=== PATIENT | male | born 1970 | race African-American/Black ===

== ENCOUNTER 2016-11-22 20:56 | Emergency (ER) ==
[2016-11-22 21:05] VITALS: BP 112/81
--- NOTE | 2016-11-22 22:59 | PROVIDER DOCUMENTATION ---
HPI-Musculoskeletal Pain/Inj - GENERAL Source: patient - HX OF PRESENT ILLNESS-MUSKULOSKELTAL Quality of Pain: reports: aching Severity in ED: moderate Onset/Duration: 2 days ago Timing: still present Modifying Factors: improves with: nothing Any recent injury?: No Locality of Occurance: Work Similar Symptoms Previously?: Yes Recently seen or treated by another doctor?: No <Mauricio Nowak - Last Filed: 11/22/16 23:59> <Yuval Deleon - Last Filed: 11/23/16 00:58> - GENERAL Chief Complaint: Return/Recheck Stated Complaint: WORKERS COMP Time Seen by Provider: 11/22/16 21:03 - HX OF PRESENT ILLNESS-MUSKULOSKELTAL Nature of Presenting Problem: 46 y/o AAM shoveling at work and felt a pain in his left lower back going around to his suprapubic region. Pt states he has hurt his back in the past. This time he went to the employee health and they said alternate ice and heat and take advil for pain. Today the pain has not improved. (Mauricio Nowak) Review of Systems - Adult - REVIEW OF SYSTEMS - ADULT Constitutional: denies: chills, fever Eyes: reports: no symptoms reported Ears, Nose, Mouth & Throat: reports: no symptoms reported Cardiovascular: reports: no symptoms reported Respiratory: reports: no symptoms reported Gastrointestinal: reports: no symptoms reported Genitourinary: denies: discharge, hematuria, incontinence, urinary retention Musculoskeletal: reports: back pain. denies: joint pain, neck pain Integumentary: reports: no symptoms reported Neurological: reports: no symptoms reported Psychiatric: reports: no symptoms reported Endocrine: reports: no symptoms reported Hematologic/Lymphatic: reports: no symptoms reported Allergic/Immunologic: reports: no symptoms reported All Other Systems: Reviewed and Negative <Mauricio Nowak - Last Filed: 11/22/16 23:59> Past History - Adult - PAST MEDICAL HISTORY-ADULT Review of Records: reports: Old Records Reviewed, Nursing Assessment Review, Medications Reviewed - PRIOR SURGERIES/PROCEDURES Surgical/Procedure History: reports: tonsillectomy - IMMUNIZATION STATUS Childhood Immunizations: See Nurse Assessment Flu Vaccine: See Nurse Assessment - FAMILY HISTORY Family History: reviewed, not pertinent - SOCIAL HISTORY Smoking: non-smoker Living Situation: family <Mauricio Nowak - Last Filed: 11/22/16 23:59> Physical Exam-Injury Related - Physical Exam-Injury Related Initial Vital Signs Reviewed: Yes General Appearance: appears well, alert, no apparent distress Eyes: PERRL/EOMI, pink conjunctivae Head, Ears, Nose, Mouth & Throat: moist mucous membranes, normal ENT inspection , TMs normal, pharynx normal Neck: non-tender, full range of motion, supple, normal inspection Respiratory: lungs clear, normal breath sounds, no pleuratic chest pain, no respiratory distress, no accessory muscle use Cardiovascular: normal peripheral pulses, regular rate, rhythm Abdominal Exam: normal bowel sounds, non tender, soft Back Exam: no CVA tenderness, no vertebral tenderness, other (left low back tenderness with palpation) Extremity: normal range of motion, non-tender, normal gait, normal inspection Integumentary: normal color, warm/dry Neurologic: grossly normal, no motor/sensory deficits Psych/Mental Status: normal mood/affect, normal thought content, normal thought process, oriented x 3 <Mauricio Nowak - Last Filed: 11/22/16 23:59> Progress - CT/MRI 1 CT Study: Renal Stone Impression: Normal (no renal stones, no hydronephrosis, no bowel obstruction, normal appendix, no abscess, Negative per Radiologist Dr Pereira) <Mauricio Nowak - Last Filed: 11/22/16 23:59> <Yuval Deleon - Last Filed: 11/23/16 00:58> - PLAN OF CARE/RESULTS Progress/Plan/Lab Results: Orders Category Date Time Status RENAL STONE SEARCH [CT] Stat Exams 11/22/16 23:[address] W/POSS RFLX CULT [URINALYSIS] Stat Lab 11/22/16 23:03 Uncollected Hydrocodone/APAP 10 mg/325 mg [[place]-10] Med 11/22/16 23:04 Discontinued 1 each PO NOW ONE Ketorolac [Toradol] Med 11/22/16 23:04 Discontinued 60 mg IM NOW ONE Orphenadrine [Norflex] Med 11/22/16 23:04 Discontinued 60 mg IM NOW ONE Vital Signs - 24 hr 11/22/16 21:01 Temperature 98 F Pulse Rate 65 Respiratory 18 Rate Blood Pressure 112/81 O2 Sat by Pulse 98 Oximetry (Yuval Deleon) Departure <Mauricio Nowak - Last Filed: 11/22/16 23:59> - Departure Time of Disposition Order: 23:34 Certified Medical Emergency: Emergent <Yuval Deleon - Last Filed: 11/23/16 00:58> - Departure DIAGNOSIS: Flank pain, Muscle spasm UTI (urinary tract infection) Qualifiers: Urinary tract infection type: site unspecified Hematuria presence: without hematuria Qualified Code(s): N39.0 - Urinary tract infection, site not specified Disposition: HOME 01 Condition: Stable Additional Instructions: ED Follow Up Instructions: You have been treated by a care provider in the Emergency Department. These instructions are being provided to you so you can have an understanding of how to care for yourself upon discharge. Upon discharge from the Emergency Department, you are responsible for making arrangements for follow-up care by a physician of your choice. Take all prescribed medications as directed. Return to the Emergency Department immediately for any new or worsening symptoms. You may call the Physician Referral phone number at [phone] to obtain a list of Physicians who are taking new patients. Prescriptions: Cyclobenzaprine [Flexeril] 10 mg PO TID #20 tablet Cephalexin [Keflex] 500 mg PO BID #14 capsule Ibuprofen [Motrin] 800 mg PO Q8H PRN PRN #20 tablet PRN Reason: inflammation Omeprazole [Prilosec] 20 mg PO DAILY@0700 #20 capsule Referrals: Checo Lujan MD [STAFF PHYSICIAN] - Attestation - Scribe Verification/Attestation Scribe:: Mauricio Nowak Acting as Scribe for:: Yuval Deleon Scribe documention review:: This chart was documented by a scribe and accurately reflects the service the provider performed and the decisions made by the provider. <Mauricio Nowak - Last Filed: 11/22/16 23:59> - Physician/ CLAUDE Attestation Patient care was provided by Advanced Practice Provider:: Yes Advanced Practice Provider:: Yuval Deleon Advanced Practice Provider documentation review:: The Mid-level provider documentation, treatment plan and medical decision making was reviewed by the physician who agrees with all treatment and medical decision making by the [facility]. <Yuval Deleon - Last Filed: 11/23/16 00:58> Physician Attestation - Physician Attestation I, the provider, attest to the following statement:: Yuval Deleon Physician documentation Attestation:: This documentation recorded by the scribe accurately reflects the service I personally performed and the decisions made by me. <Yuval Deleon - Last Filed: 11/23/16 00:58>
[2016-11-22] MEDS ORDERED: TORADOL IM ONE (23:04)
[2016-11-22] MEDS ORDERED: NORCO-10 PO ONE (23:04)
[2016-11-22] MEDS ORDERED: NORFLEX IM ONE (23:04)
[2016-11-23 00:23] LABS: URINE SOURCE VOIDED
[2016-11-23 00:28] LABS: BILIRUBIN URINE NEGATIVE (NEGATIVE); BLOOD URINE NEGATIVE (NEGATIVE); CLARITY HAZY (CLEAR); COLOR YELLOW; GLUCOSE URINE NEGATIVE (NEGATIVE); LEUKOCYTES URINE 1+ (NEGATIVE); NITRITE URINE NEGATIVE (NEGATIVE); PROTEIN URINE NEGATIVE (NEGATIVE); UROBILINOGEN URINE 1+(1 mg/dL)
[2016-11-23 00:50] LABS: URINE EPITHELIAL CELLS <10 /HPF (<10); URINE RBC <10 /HPF (<10); URINE WBC TNTC /HPF (<10)
[2016-11-23 00:51] LABS: URINE CULTURE PL NEEDED? YES; URINE SMALL ROUND CELLS TRANSITIONAL PRESENT
[2016-11-23] MEDS ORDERED: ROCEPHIN IM ONE (00:55)
[2016-11-23] MEDS ORDERED: XYLOCAINE-MPF 1% INJ ONE (00:55)
--- NOTE | 2016-11-23 08:26 | Diag Imaging Result Document ---
PROCEDURE NAME: RENAL STONE SEARCH - 11/22/2016 CT ABDOMEN AND PELVIS WITHOUT ORAL OR INTRAVENOUS CONTRAST. DOSE REDUCTION PROTOCOL: FINDINGS: The lower lungs are clear. Normal spleen and adrenal glands. No inflammation about the pancreas or gallbladder. No focal hepatic abnormality identified on this noncontrasted exam. A calcified granuloma is noted in the right lower lobe. No perinephric inflammation. No renal stones. No hydronephrosis. Normal aorta. No bowel obstruction. Normal appendix. No abscess. The urinary bladder is distended and appears normal. Prostate is not enlarged. Minimal curvature to the spine. No compressed vertebra. IMPRESSION: 1. No renal stones or hydronephrosis. 2. No bowel obstruction. Normal appendix. No abscess. A preliminary report was given at 11:30 p.m.
== END 2016-11-23 01:33 | disposition home or self-care (01) ==
LOC: P.ED 20:56
DX: N39.0 Urinary tract infection, site not specified (principal); R10.9 Unspecified abdominal pain; M62.838 Other muscle spasm
CPT/HCPCS: 74176; 81001; 87088; 87491; 87591; 96372; J0696; J1885; J2360

== ENCOUNTER 2016-11-24 09:39 | Emergency (ER) ==
[2016-11-24 09:50] VITALS: BP 116/86
--- NOTE | 2016-11-24 10:11 | PROVIDER DOCUMENTATION ---
HPI-General Adult - General Chief Complaint: Return W/Comp Stated Complaint: LOWER BACK PAIN Time Seen by Provider: 11/24/16 09:54 Source: patient Allergies/Adverse Reactions: Patient Allergies Allergy/AdvReac Type Severity Reaction Status Date / Time No Known Allergies Allergy Verified 05/28/16 14:01 Home Medications: Home Medication List Medication Instructions Recorded Confirmed Last Taken Type Cephalexin [Keflex] 500 mg PO BID #14 capsule 11/23/16 Unknown Rx Cyclobenzaprine [Flexeril] 10 mg PO TID #20 tablet 11/23/16 Unknown Rx Ibuprofen [Motrin] 800 mg PO Q8H PRN PRN #20 tablet 11/23/16 Unknown Rx Omeprazole [Prilosec] 20 mg PO DAILY@0700 #20 capsule 11/23/16 Unknown Rx Ciprofloxacin HCl [Cipro] 500 mg PO BID #20 tablet 11/24/16 Unknown Rx Hydrocodone/APAP 7.5 mg/325 mg 1 each PO Q8H PRN PRN #10 tablet 11/24/16 Unknown Rx [[place]-7.5] - History of Present Illness -Gen Adult Nature of Presenting Problems: patient is a 46 y/o m that presents to the ER with lower back pain x 4 days. patient initially hurt back at work 4 days ago. Went to [facility], told to take OTC meds and f/u in one week or with ortho. Patient's pain got worse 24 hours later and he came to the ER. He had Ct RSS and UA performed that showed uti and back strain. Patient still has pain and worse with movement. Location of Pain/Injury: reports: back Pain Radiation: reports: no radiation Quality of Pain: reports: aching, tightness Severity: reports: moderate Onset/Duration: reports: abrupt, 4 days ago, 5 days ago Timing: reports: still present, constant Context/Activities at Onset: reports: moderate activity Modifying Factors: worse with: movement Associated Symptoms: reports: back/neck pain, muscle aches. denies: nausea, vomiting, weakness Similar Symptoms Previously?: Yes Recently seen or treated by another doctor?: Yes Review of Systems - Adult - REVIEW OF SYSTEMS - ADULT Constitutional: denies: chills, fever Eyes: reports: no symptoms reported Ears, Nose, Mouth & Throat: reports: no symptoms reported Cardiovascular: denies: chest pain, palpitations, syncope Respiratory: denies: cough, shortness of breath, wheezing Gastrointestinal: denies: abdominal pain, diarrhea, nausea, vomiting Genitourinary: denies: dysuria, frequency, hematuria Musculoskeletal: reports: back pain. denies: joint pain, neck pain Integumentary: reports: no symptoms reported Neurological: reports: no symptoms reported Psychiatric: reports: no symptoms reported Endocrine: reports: no symptoms reported Hematologic/Lymphatic: reports: no symptoms reported Allergic/Immunologic: reports: no symptoms reported All Other Systems: Reviewed and Negative Past History - Adult - PAST MEDICAL HISTORY-ADULT Review of Records: reports: Old Records Reviewed, Nursing Assessment Review, Medications Reviewed - PRIOR SURGERIES/PROCEDURES Surgical/Procedure History: reports: tonsillectomy - IMMUNIZATION STATUS Childhood Immunizations: See Nurse Assessment Flu Vaccine: See Nurse Assessment - FAMILY HISTORY Family History: reviewed, not pertinent - SOCIAL HISTORY Smoking: non-smoker Alcohol Use Frequency: occasionally Living Situation: family Physical Exam-General - PHYSICAL EXAM-ADULT Initial Vital Signs Reviewed: Yes - CONSTITUTIONAL General Appearance: alert, no apparent distress - EYES Eyes: PERRL/EOMI, pink conjunctivae - HEAD, EARS, NOSE, MOUTH & THROAT HENMT: normocephalic/atraumatic, moist mucous membranes, normal ENT inspection - NECK Neck: full range of motion, normal inspection - RESPIRATORY Respiratory: lungs clear, normal breath sounds, no respiratory distress, no accessory muscle use - CARDIOVASCULAR Cardiovascular: regular rate, rhythm, no edema, no murmur - GASTROINTESTINAL (ABDOMEN) Abdominal Exam: normal bowel sounds, non tender, soft, no organomegaly, no pulsatile mass - MUSCULOSKELETAL Back Exam: muscle spasm (left lower). negative: ecchymosis, kyphosis Extremity: normal range of motion, normal inspection, no pedal edema, no calf tenderness - SKIN Integumentary: normal color, warm/dry - NEUROLOGIC Neurologic: grossly normal, no motor/sensory deficits - PSYCHIATRIC Psych/Mental Status: normal mood/affect, normal thought content, normal thought process, oriented x 3 Progress - PLAN OF CARE/RESULTS Progress/Plan/Lab Results: plan of care-ua Vital Signs Temp Pulse Resp BP Pulse Ox 11/24/16 09:45 97.8 F 69 18 116/86 100 No Known Allergies Allergy (Verified 05/28/16 14:01) Cephalexin [Keflex] 500 mg PO BID #14 capsule 11/23/16 Cyclobenzaprine [Flexeril] 10 mg PO TID #20 tablet 11/23/16 Ibuprofen [Motrin] 800 mg PO Q8H PRN PRN #20 tablet 11/23/16 Omeprazole [Prilosec] 20 mg PO DAILY@0700 #20 capsule 11/23/16 Laboratory 11/24/16 11/24/16 10:15 10:15 Urine Source CLEAN CATCH Urine Color DOT Urine Clarity CLEAR Urine pH 6.0 Ur Specific [place] 1.020 Urine Protein TRACE A Urine Ketones NEGATIVE Urine Blood NEGATIVE Urine Nitrite NEGATIVE Urine Bilirubin NEGATIVE Urine Urobilinogen NORMAL Urine Microscopic RBC Not Reportable Urine WBC 1+ A Urine Microscopic WBC <10 Ur Epithelial Cells <10 Urine Glucose NEGATIVE Urine Opiates Screen NONE DETECTED Ur Oxycodone Screen NONE DETECTED Urine Methadone Screen NONE DETECTED Ur Barbituates Screen NONE DETECTED Ur Tricyclics Screen NONE DETECTED Ur Phencyclidine Scrn NONE DETECTED Ur Amphetamines Screen NONE DETECTED U Methamphetamines Scrn NONE DETECTED Urine MDMA Screen NONE DETECTED U Benzodiazepines Scrn NONE DETECTED Urine Cocaine Screen NONE DETECTED U Cannabinoids Screen NONE DETECTED Orders Category Date Time Status UDS [URINE DRUG SCREEN PL] Stat Lab 11/24/16 10:[address] W/POSS RFLX CULT [URINALYSIS] Stat Lab 11/24/16 10:15 Completed Orders Category Date Time Status UDS [URINE DRUG SCREEN PL] Stat Lab 11/24/16 10:[address] W/POSS RFLX CULT [URINALYSIS] Stat Lab 11/24/16 10:15 Completed Azithromycin [Zithromax] Med 11/24/16 10:56 Discontinued 1,000 mg PO NOW ONE CefTRIAXONE [Rocephin] Med 11/24/16 10:55 Discontinued 1 gm IM NOW ONE Lidocaine 1% Pf [Xylocaine-Mpf 1%] Med 11/24/16 10:55 Discontinued 5 ml INJ NOW ONE pt will be d/ chome with rx, f/u with ortho and [facility], pt was clinically stable, he will stop the keflex and start cipro Departure - Departure Time of Disposition Order: 10:58 DIAGNOSIS: UTI (urinary tract infection) Qualifiers: Urinary tract infection type: acute cystitis Hematuria presence: without hematuria Qualified Code(s): N30.00 - Acute cystitis without hematuria Low back strain Qualifiers: Encounter type: initial encounter Qualified Code(s): S39.012A - Strain of muscle, fascia and tendon of lower back, initial encounter Disposition: HOME 01 Certified Medical Emergency: Emergent Condition: Stable Additional Instructions: follow up with ortho as instructed by [facility] take medications all the way through(stop Keflex) ED Follow Up Instructions: You have been treated by a care provider in the Emergency Department. These instructions are being provided to you so you can have an understanding of how to care for yourself upon discharge. Upon discharge from the Emergency Department, you are responsible for making arrangements for follow-up care by a physician of your choice. Take all prescribed medications as directed. Return to the Emergency Department immediately for any new or worsening symptoms. You may call the Physician Referral phone number at [phone] to obtain a list of Physicians who are taking new patients. Referrals: None,PCP [Primary Care Provider] - Yuval Marrero, DO [STAFF PHYSICIAN] - (call for follow up) Instructions: Urinary Tract Infection, Back Pain, Adult, [id number], Low Back Strain with Rehab-SportsMed Attestation - Scribe Verification/Attestation Scribe:: [place] Hare Acting as Scribe for:: Ammon Ruiz Scribe documention review:: This chart was documented by a scribe and accurately reflects the service the provider performed and the decisions made by the provider. Physician Attestation - Physician Attestation I, the provider, attest to the following statement:: Ammon Ruiz Physician documentation Attestation:: This documentation recorded by the scribe accurately reflects the service I personally performed and the decisions made by me.
[2016-11-24 10:37] LABS: URINE CULTURE PL NEEDED? NO; URINE SOURCE CLEAN CATCH
[2016-11-24 10:50] LABS: UR AMPHETAMINES QUAL NONE DETECTED (NONE DETECT); UR BARBITUATES QUAL NONE DETECTED (NONE DETECT); UR BENZODIAZEPIN QUAL NONE DETECTED (NONE DETECT); UR CANNABINOIDS QUAL NONE DETECTED (NONE DETECT); UR COCAINE QUAL NONE DETECTED (NONE DETECT); UR MDMA QUAL NONE DETECTED (NONE DETECT); UR METHADONE QUAL NONE DETECTED (NONE DETECT); UR METHAMPHETAMINE QUAL NONE DETECTED (NONE DETECT); UR OPIATES QUAL NONE DETECTED (NONE DETECT); UR OXYCODONE QUAL NONE DETECTED (NONE DETECT); UR PCP QUAL NONE DETECTED (NONE DETECT); UR TCA QUAL NONE DETECTED (NONE DETECT)
[2016-11-24 10:52] LABS: BILIRUBIN URINE NEGATIVE (NEGATIVE); BLOOD URINE NEGATIVE (NEGATIVE); CLARITY CLEAR (CLEAR); COLOR AMBER; GLUCOSE URINE NEGATIVE (NEGATIVE); LEUKOCYTES URINE 1+ (NEGATIVE); NITRITE URINE NEGATIVE (NEGATIVE); PROTEIN URINE TRACE mg/dL (NEGATIVE); UROBILINOGEN URINE NORMAL
[2016-11-24 10:53] LABS: URINE EPITHELIAL CELLS <10 /HPF (<10); URINE WBC <10 /HPF (<10)
[2016-11-24] MEDS ORDERED: ROCEPHIN IM ONE (10:55)
[2016-11-24] MEDS ORDERED: XYLOCAINE-MPF 1% INJ ONE (10:55)
[2016-11-24] MEDS ORDERED: ZITHROMAX PO ONE (10:56)
== END 2016-11-24 11:30 | disposition home or self-care (01) ==
LOC: P.ED 09:39
DX: S39.012A Strain of muscle, fascia and tendon of lower back, initial encounter (principal); N30.00 Acute cystitis without hematuria; M54.5 Low back pain; M79.1 Myalgia; M62.830 Muscle spasm of back; X58.XXXA Exposure to other specified factors, initial encounter
CPT/HCPCS: 80305; 81001; J0696